=== PATIENT | male | born 1985 ===

== ENCOUNTER 2018-05-12 11:57 | Emergency (ER) | payer OTHER ==
[2018-05-12 12:12] VITALS: BP 111/75
--- NOTE | 2018-05-12 12:26 | UC ---
Back Pain HPI - HPI Summary HPI Summary: 33 yo male presents with left sided low back pain since yesterday. 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 As the day went on the area in his back became "tight" and more painful. When he got home from work he took 200mg ibuprofen, which helped. He slept on the floor last night and this seemed to help as well. Today his pain has continued and has intermittent radiation of pain into his lateral left thigh. He denies dysuria, saddle anesthesia, loss of bowel/bladder control, numbness, or tingling. He is ambulatory without assistance. - History of Current Complaint Chief Complaint: UCBackPain Stated Complaint: BACK INJURY Time Seen by Provider: 05/12/18 12:26 Hx Obtained From: Patient Onset/Duration: Sudden Onset Timing: Constant Severity Initially: Mild Severity Currently: Mild Pain Intensity: 3 Pain Scale Used: 0-10 Numeric - Allergies/Home Medications Allergies/Adverse Reactions: Allergies Allergy/AdvReac Type Severity Reaction Status Date / Time No Known Allergies Allergy Verified 05/12/18 12:10 Home Medications: Home Medications Insulin LISPRO* [HumaLOG*] 50 unit .ROUTE DAILY 05/12/18 [History Confirmed 06/25] Levothyroxine TAB* [Synthorid 112 MCG TAB*] 1 tab PO DAILY 05/12/18 [History Confirmed 05/12/18] PMH/Surg Hx/FS Hx/Imm Hx Endocrine History: Diabetes, Hypothyroidism - Surgical History Surgical History: Yes Surgery Procedure, Year, and Place: septum - Family History Known Family History: Positive: Diabetes - Social History Occupation: Employed Full-time Lives: With Family Alcohol Use: None Substance Use Type: None Smoking Status (MU): Never Smoked Tobacco Review of Systems All Other Systems Reviewed And Are Negative: Yes Constitutional: Positive: Negative Skin: Positive: Negative Respiratory: Positive: Negative Cardiovascular: Positive: Negative Gastrointestinal: Positive: Negative Genitourinary: Positive: Negative Neurovascular: Positive: Negative Musculoskeletal: Positive: Other: - Low back pain Neurological: Positive: Negative Psychological: Positive: Negative Physical Exam - Summary Physical Exam Summary: GENERAL: NAD. WDWN. No pain distress. SKIN: No rashes, sores, lesions, or open wounds. NECK: Supple. FROM. Nontender. No lymphadenopathy. CHEST: CTAB. No r/r/w. No accessory muscle use. Breathing comfortably and in no distress. CV: RRR. Without m/r/g. Pulses intact. Cap refill <2seconds MSK: TTP over LEFT lumbar paraspinal muscles. Pain with flexion and extension of spine. Positive SLR left for low back pain without radiation. Strength 5/5 B/ L LEs including dorsiflexion and plantar flexion. FROM B/L LEs. No edema. NEURO: Alert. Sensations intact B/L LEs L3-S1. Reflexes intact PSYCH: Age appropriate behavior. Triage Information Reviewed: Yes Vital Signs: Initial Vital Signs Temp 98 F 05/12/18 12:05 Pulse 78 05/12/18 12:05 Resp 17 05/12/18 12:05 BP 111/75 05/12/18 12:05 Pulse Ox 100 05/12/18 12:05 Vital Signs Reviewed: Yes Back Pain Course/Dx - Course Course Of Treatment: Suspect muscle spasm. Rx for naproxen and flexeril. Advised to gently stretch the area and I suspect his symptoms will improve in a few days. He is concerned about doing lifting and moving at work, thus I will provide him with a note refraining from heavy lifting for all of next week to allow his back to rest. - Differential Dx/Diagnosis Provider Diagnosis: Back spasm Discharge - Sign-Out/Discharge Documenting (check all that apply): Patient Departure All imaging exams completed and their final reports reviewed: No Studies - Discharge Plan Condition: Stable Disposition: HOME Prescriptions: Cyclobenzaprine TAB* [Flexeril 10 MG TAB*] 10 mg PO BEDTIME PRN #10 tab PRN Reason: Pain Naproxen [Naproxen 500 mg tab] 500 mg PO BID PRN #20 tablet.dr SOLANO Reason: Pain Patient Education Materials: Muscle Spasm (ED) Forms: *Work Release Referrals: No Primary Care Phys,NOPCP [Primary Care Provider] - Additional Instructions: If you develop a fever, shortness of breath, chest pain, new or worsening symptoms - please call your PCP or go to the ED. 1) Gently stretch your back daily to reduce pain and keep the muscle loose 2) Do not take ibuprofen with the naproxen as these medications are related and may interact - Billing Disposition and Condition Condition: STABLE Disposition: Home
[2018-05-12] MEDS ORDERED: Ketorolac INJ* 30 MG/ML 1 ML VIAL IM ONE (12:35)
[2018-05-12] MEDS ORDERED: Ketorolac INJ* 60 MG/2 ML VIAL IM ONE (12:35)
== END 2018-05-12 13:03 | disposition home or self-care (01) ==
LOC: UCEAST 11:57
DX: M62.830 Muscle spasm of back (principal); E11.9 Type 2 diabetes mellitus without complications; E03.9 Hypothyroidism, unspecified; Z79.4 Long term (current) use of insulin; Z79.890 Hormone replacement therapy
CPT/HCPCS: 96372; 99212; G0463; J1885